=== PATIENT | female | born 1990 | race Caucasian/White ===

== ENCOUNTER 2017-03-10 07:58 | Emergency (ER) | payer OTHER ==
[~2017-03-10] VITALS: Ht 152.4 cm; Wt 59.1 kg
[~2017-03-10 07:58] MED LIST: HYDR-4003 PO; IBUP800T28 PO
[2017-03-10 08:02] VITALS: BP 144/96; PULSE 125; RESP 20; O2SAT 96
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
[2017-03-10 11:31] VITALS: BP 138/76; PULSE 107; RESP 20; O2SAT 98
== END 2017-03-10 11:20 | disposition home or self-care (01) ==
LOC: SED 07:58
DX: T74.21XA Adult sexual abuse, confirmed, initial encounter (principal); R07.89 Other chest pain; Y07.50 Unspecified non-family member, perpetrator of maltreatment and neglect; F41.9 Anxiety disorder, unspecified; Z88.0 Allergy status to penicillin; Z88.1 Allergy status to other antibiotic agents